=== PATIENT | female | born 1945 | race Caucasian/White ===

== ENCOUNTER → 2019-03-26 | Outpatient (REF) | payer MEDICARE | LOC: M LAB REF 15:42 | PROVIDERS: ATTEND Nurse Practitioner Family | DX: N39.0 Urinary tract infection, site not specified (principal) ==

== ENCOUNTER → 2022-05-26 | Outpatient (REF) | payer MEDICARE | LOC: M LAB REF 16:56 | PROVIDERS: ATTEND Internal Medicine Nephrology | DX: N39.0 Urinary tract infection, site not specified (principal) ==

== ENCOUNTER → 2024-09-06 | Outpatient (REF) | payer MEDICARE | LOC: M LAB REF 17:06 | PROVIDERS: ATTEND Nurse Practitioner Family | DX: N39.0 Urinary tract infection, site not specified (principal) ==